=== PATIENT | male | born 1960 | race African-American/Black ===

== ENCOUNTER 2019-08-17 18:36 | Observation (INO) ==
[2019-08-17] MEDS ORDERED: Isovue-370 500 ML BOTTLE IVP ONE (19:04)
[2019-08-17] MEDS ORDERED: 0.9 % Sodium Chloride 1,000 ML IVC ONE (19:05)
[2019-08-17 19:14] LABS: Basophils % 0.3 %; Eosinophils # 0.2 K/mcL (0.0-0.6); Eosinophils % 2.6 %; Hematocrit 44.9 % (37.5-50.1); Immature Granulocytes % 0.4 % (0-4); Lymphocytes # 2.3 K/mcL (0.6-4.6); Lymphocytes % 32.4 %; Mean Corpuscular HGB Conc 33.4 g/dL (31.6-35.5); Mean Corpuscular Hemoglobin 28.2 pg (28.0-33.3); Mean Corpuscular Volume 84.6 fL (83.0-100.0); Mean Platelet Volume 9.6 fL (9.4-12.4); Monocytes # 0.6 K/mcL (0.0-1.3); Monocytes % 8.4 %; Neutrophils # 3.9 K/mcL (1.6-8.9); Platelet Count 255 K/mcL (140-400); Red Blood Count 5.31 M/mcL (4.19-5.50); Red Cell Distribution Width 14.1 % (11.5-14.5); Segmented Neutrophils % 55.9 %
[2019-08-17] MEDS ORDERED: *HR* FentaNYL (PF) 100 MCG/2 ML VIAL IVP ONE (19:29)
[2019-08-17 19:36] LABS: BUN/Creatinine Ratio 16 (6-26); Blood Urea Nitrogen 16 mg/dL (8-23); Calcium 9.8 mg/dL (8.6-10.3); Carbon Dioxide 27 mEq/L (23-29); Chloride 104 mEq/L (98-107); Glucose 103 mg/dL (70-105); Osmolality,Calculated 289 (280-300); Potassium 4.2 mEq/L (3.5-5.1); Sodium 139 mEq/L (136-145); eGFR For African Americans > 60 (> 60); eGFR For Non-African Americans > 60 (> 60)
[2019-08-17 19:40] LABS: Bilirubin,Urine Negative (Negative); Blood,Urine Negative (Negative); Clarity,Urine Cloudy (Clear); Color,Urine Yellow (Yellow); Glucose,Urine (UA) Normal (Normal); Ketones,Urine Negative (Negative); Leukocyte Esterase,Urine Negative (Negative); Nitrite,Urine Negative (Negative); Protein,Urine Negative (Neg-Trace); Specific Gravity,Urine 1.025 (1.010-1.025); Urobilinogen,Urine Normal (Normal)
[2019-08-17 19:44] LABS: Bacteria,Urine None Seen per hpf (None-Few); Hyaline Casts,Urine None Seen per lpf (None-Few); RBC,Urine 0-3 per hpf (0-3); Squamous Epithelial Cell,Urine None Seen per lpf (None-Few); WBC,Urine 0-3 per hpf (0-3)
[2019-08-17 20:02] LABS: Troponin I < 0.03 ng/mL (< 0.04)
[2019-08-17 20:05] LABS: Alanine Aminotransferase 13 Units/L (7-52); Albumin 4.2 g/dL (3.5-5.7); Albumin/Globulin Ratio 1.6 (1.1-2.2); Alkaline Phosphatase 65 Units/L (34-104); Aspartate Amino Transferase 21 Units/L (13-39); Bilirubin,Direct 0.1 mg/dL (0.0-0.2); Bilirubin,Indirect 0.3 mg/dL (0.0-1.0); Bilirubin,Total 0.4 mg/dL (0.3-1.0); Globulin 2.6 g/dL (2.4-3.5); Lipase 27 Units/L (11-82); Total Protein 6.8 g/dL (6.4-8.9)
[2019-08-17] MEDS ORDERED: Piperacillin/Tazobactam 3.375 GM in 0.9 % Sodium Chloride Mini Bag 100 ML IVPB ONE (21:38)
[2019-08-17] MEDS ORDERED: *HR* HYDROmorphone (PF) 1 MG/ML SYRINGE IVP ONE (21:58)
[2019-08-18] MEDS ORDERED: Ondansetron 4 MG/2 ML VIAL IVP PRN ×2 (00:07→16:51)
[2019-08-18] MEDS ORDERED: D5% in 0.45% NACL w KCl 20 MEQ/1,000 ML MLS IVC SCH ×2 (00:15→16:51)
[2019-08-18] MEDS ORDERED: *HR* Enoxaparin 40 MG/0.4 ML SYRINGE SQ SCH (06:00)
[2019-08-18] MEDS ORDERED: Piperacillin/Tazobactam 3.375 GM in 0.9 % Sodium Chloride Mini Bag 100 ML IVPB SCH (08:00)
[2019-08-18] MEDS ORDERED: Pantoprazole 40 MG VIAL IVP SCH (09:00)
[2019-08-18] MEDS ORDERED: Isovue-300 50ML VIAL ONE (12:54)
[2019-08-18] MEDS ORDERED: *HR* Rocuronium Bromide 50 MG/5 ML VIAL ONE (13:35)
[2019-08-18] MEDS ORDERED: Ondansetron 4 MG/2 ML VIAL ONE (13:35)
[2019-08-18] MEDS ORDERED: *HR* HYDROmorphone (PF) 1 MG/ML SYRINGE IVP PRN (13:35)
[2019-08-18] MEDS ORDERED: *HR* OxyCODONE Immed Rel 5 MG TABLET PO PRN (13:35)
[2019-08-18] MEDS ORDERED: Dexamethasone 4 MG/ML VIAL ONE ×2 (13:35→14:24)
[2019-08-18] MEDS ORDERED: Lidocaine -MPF 2% 2 ML VIAL ONE ×2 (13:35→14:24)
[2019-08-18] MEDS ORDERED: *HR* Propofol 200 MG/20 ML VIAL IVP ONE (13:35)
[2019-08-18] MEDS ORDERED: *HR* Midazolam HCl 2 MG/2 ML VIAL ONE (13:35)
[2019-08-18] MEDS ORDERED: *HR* Succinylcholine 200 MG/10 ML VIAL IVP ONE (13:35)
[2019-08-18] MEDS ORDERED: *HR* FentaNYL (PF) 100 MCG/2 ML VIAL ONE (13:35)
[2019-08-18] MEDS ORDERED: Ketorolac 30 MG/ML VIAL ONE (13:38)
[2019-08-18] MEDS ORDERED: Lidocaine HCL 4 ML Topical Solution (Laryng-O-Jet Kit Sterile Pak) TP ONE (13:40)
[2019-08-18] MEDS ORDERED: cefOXitin 1,000 MG, 0.9 % Sodium Chloride 1,000 ML IR ONE ×2 (15:00→16:51)
[2019-08-18] MEDS ORDERED: *HR* HYDROMORPHONE 2 MG/ML VIAL ONE (15:36)
[2019-08-18] MEDS ORDERED: Piperacillin/Tazobactam 3.375 GM VIAL ONE (17:52)
[2019-08-18] MEDS: Piperacillin/Tazobactam 3.375 GM in 0.9 % Sodium Chloride Mini Bag 100 ML IVPB SCH ×2 (17:57→23:33)
[2019-08-19] MEDS ORDERED: *HR* Enoxaparin 40 MG/0.4 ML SYRINGE SQ SCH (06:00)
[2019-08-19 07:12] VITALS: BP 131/80
[2019-08-19] MEDS ORDERED: Acetaminophen IV 1,000 MG/100 ML INFUS..BTL IVPB ONE (07:48)
[2019-08-19 08:23] LABS: Hematocrit 41.4 % (37.5-50.1); Hemoglobin 13.8 g/dL (12.9-16.9)
[2019-08-19] MEDS ORDERED: hydroCHLOROthiazide 25 MG TABLET PO SCH (09:00)
[2019-08-19] MEDS ORDERED: Pantoprazole 40 MG VIAL IVP SCH (09:00)
[2019-08-19] MEDS ORDERED: FLU Vac QV 19-20 (6Month+)/PF 0.5 ML SYRINGE IM ONE (09:39)
== END 2019-08-19 10:11 | disposition home or self-care (01) ==
LOC: 3ANU 18:36 → EMEROOARM 18:36 → 3ANU 08-18 00:47
PROVIDERS: ADMIT Surgery; ATTEND Surgery